=== PATIENT | male | born 1955 | race Caucasian/White ===

== ENCOUNTER 2016-03-12 14:20 | Emergency (ER) | payer OTHER ==
[~2016-03-12] VITALS: Ht 170.2 cm; Wt 97.5 kg
[2016-03-12 14:39] VITALS: BP 132/93
--- NOTE | 2016-03-12 15:05 | ED UPPER/LOWER EXTREMITY COMPL ---
History of Present Illness General Chief Complaint: Foot or Ankle Injury Stated Complaint: WORK INJURY L ANKLE PAIN Source: patient Exam Limitations: no limitations Vital Signs & Intake/Output Vital Signs & Intake/Output Vital Signs Date Time Temp Pulse Resp B/P Pulse O2 O2 Flow FiO2 Ox Delivery Rate 03/12 1556 Room Air Room Air 03/12 1439 98.4 82 18 132/93 96 Room Air Allergies Coded Allergies: No Known Allergies (03/12/16) Reconcile Medications Oxycodone HCl/Acetaminophen (Percocet 5-325 MG Tablet) 5 MG-325 MG TABLET 1 TAB PO TID PRN PAIN Triage Note: 60 Y/O MALE C/O L ANKLE PAIN S/P "SLIP ON LADDER" TODAY AT WORK. DENIES TAKING MEDICATION FOR PAIN. SWELLING NOTED. TAKEN TO STRETCHER FOR EVAL. Triage Nurses Notes Reviewed? yes HPI: 60-year-old male with complaints of left lateral foot pain after an injury that occurred at work a few hours prior to arrival. He was coming down a ladder when he slipped on the last few steps and landed on the outside of his foot and inverted his foot and ankle. He has moderate throbbing pain in the area. No other injuries. He treated with warm water and ice with minimal relief. He has pain with weightbearing and walking (INDERJIT CALDERON) Past History Travel History Traveled to [place] past 21 day No Medical History Any Pertinent Medical History? see below for history Neurological: NONE EENT: NONE Cardiovascular: NONE Respiratory: NONE Gastrointestinal: NONE Hepatic: NONE Renal: NONE Musculoskeletal: disk herniation (C SPINE) Psychiatric: NONE Endocrine: NONE Blood Disorders: NONE Cancer(s): NONE FIELD HANDYMAN/Reproductive: NONE Surgical History Surgical History: spinal fusion (CERVICAL) Psychosocial History What is your primary language Slovak Tobacco Use: Current Not Daily Daily Tobacco Use Amount/Type: Cigar or Pipe use daily Family History Hx Contributory? No (INDERJIT CALDERON) Review of Systems Review of Systems Constitutional: Reports: see HPI. EENTM: Reports: no symptoms. Respiratory: Reports: no symptoms. Cardiovascular: Reports: no symptoms. Gastrointestinal/Abdominal: Reports: no symptoms. Genitourinary: Reports: no symptoms. Musculoskeletal: Reports: see HPI. Skin: Reports: no symptoms. Neurological/Psychological: Reports: no symptoms. Hematologic/Endocrine: Reports: no symptoms. Immunological: Reports: no symptoms. All Other Systems: Reviewed and Negative (INDERJIT CALDERON) Physical Exam Physical Exam General Appearance: well developed/nourished Comments: Well-developed well-nourished no apparent distress. HEENT: Atraumatic, extraocular motion intact Neck: Supple, no lymphadenopathy Back: Nontender Respiratory: No respiratory distress Extremities: No edema, full range of motion Neuro: Alert and oriented x3 Psych: Mood affect normal, normal memory normal judgment. Skin: Warm and dry, no rash on exposed skin Left lower extremity, ankle exam is benign, skin is intact no ankle pain or tenderness to range of motion Achilles intact. Examination of the foot reveals tenderness over the base of the third fourth and fifth metatarsal region with mild swelling, increased pain with inversion stress. Neurovascularly intact. Mild medial tenderness (INDERJIT CALDERON) Progress Differential Diagnosis: arterial insufficiency, cellulitis, CHF, compartment syndrome, contusion, dislocation, DVT, fracture, gout, septic arthritis, sprain, tendon injury Plan of Care: Orders Procedure Date/time Status XRY-FOOT COMPLETE, LEFT 03/12 150 Active Current Medications Sig/Fer Start time Last Medication Dose Stop Time Status Admin Oxycodone/ 1 TAB ONCE ONE 03/12 1515 UNVr Acetaminophen 03/12 1516 (Percocet) Diagnostic Imaging: Viewed by Me: Radiology Read. Discussed w/RAD: Radiology Read. Radiology Impression: PATIENT: MARILUZ CHRISTIANSEN PRESENT AGE: 60 PATIENT ACCOUNT NO: [id number] : 55 LOCATION: [facility] ORDERING PHYSICIAN: INDERJIT AG SERVICE DATE: 03/12/16-150 EXAM TYPE: RAD - XRY-FOOT COMPLETE, LEFT EXAMINATION: XR FOOT, LEFT CLINICAL INFORMATION: Evaluate for fifth metatarsal fracture . Fall. Inversion. COMPARISON: None TECHNIQUE: AP, lateral, and oblique views of the left foot. FINDINGS: Moderate enthesopathic spurring is present at the plantar aspect of the calcaneus. Tiny osteophytes are present at the first MTP joint. Joint spaces well-preserved. No fracture or malalignment. Bone mineralization is normal. Generalized soft tissue swelling. IMPRESSION: No acute fracture or malalignment. Fifth metatarsal is intact. DICTATED BY: YARA KEYES MD DATE/TIME DICTATED:03/12/161522 PILLOW FILLER:TEJA DATE/TIME TRANSCRIBED:03/12/16 / Comments: X-ray show no fracture of the left foot. Trino wrap is applied and a postop shoe was provided by myself. Neurovascularly intact postprocedure. recommend rest ice compression and elevation pain medication and orthopedic follow-up next week. (INDERJIT CALDERON) Departure Departure Disposition: HOME OR SELF CARE Condition: Stable Clinical Impression Primary Impression: Sprain of foot, left Qualifiers: Encounter type: initial encounter Qualified Code: S93.602A - Unspecified sprain of left foot, initial encounter Referrals: LAURYN VALDEZ,YO ABBOTT MD,GARCIA Marie (PCP/Family) Additional Instructions: Rest, ice, compression (trino wrap), elevation. Motrin and Tylenol as needed for pain. Percocet for severe pain Gradual return to activity as tolerated. Follow-up with orthopedist in one week Departure Forms: Customer Survey Employee Industrial Accident General Discharge Information Prescriptions: Current Visit Scripts Oxycodone HCl/Acetaminophen (Percocet 5-325 MG Tablet) 1 TAB PO TID PRN PAIN #10 TAB (INDERJIT CALDERON) PA/GEOLOGICAL ENGINEERING TEACHER Co-Sign Statement Statement: ED Attending supervision documentation- x I saw and evaluated the patient. I have also reviewed all the pertinent lab results and diagnostic results. I agree with the findings and the plan of care as documented in the PA's/GEOLOGICAL ENGINEERING TEACHER's documentation. [] I have reviewed the ED Record and agree with the PA's/GEOLOGICAL ENGINEERING TEACHER's documentation. [] Additions or exceptions (if any) to the PAs/GEOLOGICAL ENGINEERING TEACHER's note and plan are summarized below: [] (RIKI VALDEZ,KENDRA)
--- NOTE | 2016-03-12 15:32 | RADIOLOGY REPORT ---
EXAMINATION: XR FOOT, LEFT CLINICAL INFORMATION: Evaluate for fifth metatarsal fracture . Fall. Inversion. COMPARISON: None TECHNIQUE: AP, lateral, and oblique views of the left foot. FINDINGS: Moderate enthesopathic spurring is present at the plantar aspect of the calcaneus. Tiny osteophytes are present at the first MTP joint. Joint spaces well-preserved. No fracture or malalignment. Bone mineralization is normal. Generalized soft tissue swelling. IMPRESSION: No acute fracture or malalignment. Fifth metatarsal is intact.
[2016-03-12] MEDS ORDERED: PERCOCET 5-3251 EACH PO (16:00)
== END 2016-03-12 16:18 ==
LOC: ERH 14:20
DX: S93.602A Unspecified sprain of left foot, initial encounter (principal); W11.XXXA Fall on and from ladder, initial encounter
CPT/HCPCS: 73630-LT